=== PATIENT | female | born 1945 | race Caucasian/White ===

== ENCOUNTER 2019-07-17 12:32 | Outpatient (CLI) | payer MEDICARE, SELFPAY ==
--- NOTE | 2019-07-17 | MR_ITS ---
WS: [id number] MRI HEAD WITH CONTRAST TECHNIQUE: Sagittal T1, T2 axial, T2 axial FLAIR, axial susceptibility weighted imaging, axial diffus ion weighted images, and coronal T2 images were obtained. Pre and post-T1 axial and post T1 coronal i mages. ADC and FSPGR images. CLINICAL INFORMATION: LT FACE PAIN COMPARISON: None. FINDINGS: No evidence restricted diffusion to suggest acute ischemia. Ventricular system and basal cisterns are patent. Moderate small vessel changes. Moderate parenchymal volume loss. Normal posterior fossa. Nor mal vascular flow voids at the skull base. No extra-axial fluid collections. No evidence of mass or m ass effect. Paranasal sinuses and mastoid air cells are well aerated. No hemosiderin on the susceptibility weighted images. Proximal 7th and 8th cranial nerves are normal in appearance. Normal trigeminal nerve root entry zones. Normal optic chiasm and pituitary infundibul um. Mild symmetric atrophy involving the temporal lobes and hippocampal formations. No abnormal intra cranial enhancement. Normal visualized dural venous sinuses. MR/MR head wo/w con [id number] IMPRESSION: 1. No evidence of restricted diffusion to suggest acute ischemia. 2. Mild small vessel changes with moderate global volume loss. 3. No evidence of enhancing IAC or CP angle mass. 4. Paranasal sinuses and mastoid air cells are well aerated. 5. No other significant findings.
[2019-07-17 15:10] LABS: Blood Urea Nitrogen 13 mg/dL (8-23)
== END 2019-07-17 12:33 | disposition home or self-care (01) ==
LOC: RADWPI 12:36
PROVIDERS: Family Provider Electrodiagnostic Medicine; PCP Electrodiagnostic Medicine; Visit Provider Specialist
DX: G50.1 Atypical facial pain (principal)
CPT/HCPCS: 70553; 82565; 84520; A9579

== ENCOUNTER 2021-04-07 13:11 | Outpatient (CLI) | payer MEDICARE, SELFPAY ==
--- NOTE | 2021-04-07 13:18 | MM_ITS ---
WS: [id number] BILATERAL DIGITAL SCREENING MAMMOGRAPHY WITH CAD CLINICAL INFORMATION: SCREENING HISTORY: Screening mammogram. No current complaints. COMPARISON: TECHNIQUE: Bilateral CC and MLO views. FINDINGS: Bilateral breast implants appear mammographically intact. Capsular calcifications. Scattered fibroglandular densities bilaterally. Punctate and lucent centered calcifications. Vascular calcification. No suspicious focal mass, asymmetry, calcifications, or architectural distortion. No evidence of malignancy. MM/[place] [id number] IMPRESSION: BI-RADS: 2-Benign FOLLOW UP: 1 Year Follow-up Recommend return to annual screening mammography.
== END 2021-04-07 13:12 | disposition home or self-care (01) ==
LOC: RADSHAW 13:14
PROVIDERS: PCP Electrodiagnostic Medicine; Visit Provider Electrodiagnostic Medicine
DX: Z12.31 Encounter for screening mammogram for malignant neoplasm of breast (principal)
CPT/HCPCS: 77067

== ENCOUNTER 2024-10-07 18:22 | Emergency (ER) | payer MEDICARE, SELFPAY ==
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
[2024-10-07 18:31] VITALS: PULSE 92; O2SAT 83
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
--- NOTE | 2024-10-07 21:25 | PC.NURSE ---
Pt was placed in the morgue at 2054. [facility] called and released the pt for MTS and for [facility]. This nurse spoke with Vidya at [facility]. [facility] was contacted at [phone] and they will be coming to [place] picker the pt tonight.
== END 2024-10-07 21:04 | disposition expired ==
PROVIDERS: Emergency Provider Emergency Medicine; PCP Clinical Nurse Specialist Adult Health
DX: I46.9 Cardiac arrest, cause unspecified (principal); S41.111A Laceration without foreign body of right upper arm, initial encounter; V86.59XA Driver of other special all-terrain or other off-road motor vehicle injured in nontraffic accident, initial encounter
CPT/HCPCS: 31500; 99285